=== PATIENT | male | born 1985 ===

== ENCOUNTER 2021-07-24 02:26 | Outpatient (CLI) | payer BC, SELFPAY ==
[2021-07-24 14:36] LABS: Hemoglobin A1C 6.6 % (<5.7)
== END 2021-07-24 02:27 | disposition home or self-care (01) ==
LOC: LBO 02:30
PROVIDERS: PCP Nurse Practitioner Family; Visit Provider Nurse Practitioner Family
DX: E13.9 Other specified diabetes mellitus without complications (principal)
CPT/HCPCS: 36415; 83036